=== PATIENT | male | born 1980 | race Two or more races ===

== ENCOUNTER 2024-01-17 01:40 | Emergency (ER) | payer SELFPAY ==
[~2024-01-17] VITALS: Ht 172.7 cm; Wt 81.0 kg
[2024-01-17] MEDS: LORazepam 2MG/ML-1ML VIAL IM ONE (02:00)
[2024-01-17] MEDS: HALOPERIDOL LACTATE 5 MG/ML INJ VIAL IM ONE (02:00)
[2024-01-17] MEDS: diphenhdrAMINE HCL 50 MG/1 ML VL IM ONE (02:00)
[2024-01-17 04:04] LABS: Eosinophils # (auto) 0 10 ^3/uL (0-0.8); Hemoglobin 12.2 g/dL (13.5-17.5); Mean Corpuscular Hemoglobin 22.3 pg (28.0-32.0); Monocytes # (auto) 1.3 10 ^3/uL (0-1.3); Red Cell Distribution Width 15.1 % (11.8-14.3)
[2024-01-17 04:07] LABS: Chloride 103 mmol/L (98-107); Potassium 3.6 mmol/L (3.5-5.1); Sodium 138 mmol/L (136-145)
[2024-01-17 04:08] LABS: Anion Gap 16 (5-15); Calcium 9.6 mg/dL (8.5-10.1); Carbon Dioxide 19 mmol/L (20-30)
[2024-01-17 04:09] LABS: Basophils # (auto) 0 10 ^3/uL (0-0.2); Basophils % (auto) 0.3 % (0.0-2.0); Hematocrit 38.4 % (41.0-53.0); Lymphocytes # (auto) 0.7 10 ^3/uL (0.4-5.4); Lymphocytes % (auto) 3.8 % (10.0-50.0); Mean Corpuscular Hgb Conc. 31.8 g/dL (32.0-36.0); Mean Corpuscular Volume 70.2 fL (80.0-100.0); Monocytes % (auto) 7.2 % (0.0-12.0); Neutrophils # (auto) 15.4 10 ^3/uL (1.6-8.6); Neutrophils % (auto) 88.7 % (37.0-80.0); Red Blood Cells 5.46 10^6/uL (4.5-5.90); White Blood Cell 17.3 10^3/uL (4.4-10.8)
[2024-01-17 04:13] LABS: BUN/Creatinine Ratio 12.8 (10.0-20.0); Blood Alcohol < 3.0 mg/dL (<10); Blood Urea Nitrogen 22 mg/dL (9-23); Glucose 124 mg/dL (74-106)
[2024-01-17 11:00] VITALS: BP 120/74; PULSE 111; RESP 16; TEMP 98; O2SAT 96
[2024-01-17] MEDS ORDERED: AMOX500T3 PO (12:58)
[2024-01-17] MEDS: cefTRIAXone SOD 1,000 MG VL IM ONE (13:12)
== END 2024-01-17 13:18 | disposition home or self-care (01) ==
LOC: ER 01:40
DX: F29 Unspecified psychosis not due to a substance or known physiological condition (principal)
CPT/HCPCS: 36415; 80048; 80320; 85025; 96372; 99284; J0696; J1200; J1630; J2060